=== PATIENT | female | born 1960 | race Caucasian/White ===

== ENCOUNTER → 2017-04-14 | Outpatient (CLI) | payer OTHER ==
[~2017-04-14] MED LIST: CALCIUM1 CAP PO
== END ==
LOC: COL.RAD 12:57
DX: S96.812A Strain of other specified muscles and tendons at ankle and foot level, left foot, initial encounter (principal); M77.32 Calcaneal spur, left foot

== ENCOUNTER → 2020-04-02 | Outpatient (CLI) | payer OTHER | LOC: MC.RAD 09:59 | DX: Z12.31 Encounter for screening mammogram for malignant neoplasm of breast (principal) ==

== ENCOUNTER 2020-10-24 12:11 | Emergency (ER) | payer BC ==
[~2020-10-24] VITALS: Ht 162.6 cm; Wt 81.8 kg
[2020-10-24 12:30] VITALS: TEMP 99
[2020-10-24 13:26] LABS: BASO % 0.3 % (0.0-2.0); EOS # 0.1 (0.0-0.7); EOS % 0.9 % (0-4.0); GRAN % 72.5 % (42.2-75.2); HEMATOCRIT 45.3 % (37.0-47.0); HEMOGLOBIN 14.7 g/dl (12.5-16.0); LYMPH # 1.3 (1.2-3.4); LYMPH % 19.6 % (20.0-51.0); MEAN CELL VOLUME 93 fl (80.0-100.0); MEAN CORPUSCULAR HEMOGLOBIN 30 pg (27.0-31.0); MEAN CORPUSCULAR HGB CONC 33 g/dl (33.0-37.0); MEAN PLATELET VOLUME 10.5 fl (7.4-10.4); MONO # 0.5 (0.1-0.6); MONO % 6.6 % (1.7-9.3); PLATELET COUNT 190 K/mm3 (130-400); RED BLOOD COUNT 4.88 M/mm3 (4.10-5.30); REDCELL DISTRIBUTION WIDTH-CV 12.2 % (11.5-14.5)
[2020-10-24 13:56] LABS: ALANINE AMINOTRANSFERASE 15 U/L (4-34); ALBUMIN 4.3 gm/dL (3.5-5.0); ALKALINE PHOSPHATASE 57 U/L (50-136); ANION GAP 3 mmol/L (7-16); AST,SGOT 20 U/L (15-37); BILIRUBIN,TOTAL 0.8 mg/dL (0.0-1.0); BLOOD UREA NITROGEN 18 mg/dL (7-17); CALCIUM 9.8 mg/dL (8.4-10.2); CARBON DIOXIDE 30 mmol/L (22-30); CHLORIDE 106 mmol/L (98-107); CREATININE, serum 0.64 (0.52-1.25); GLUCOSE 100 mg/dL (74-106); POTASSIUM 4.3 mmol/L (3.4-5.0); SODIUM 138 mmol/L (137-145); TOTAL PROTEIN 7.5 gm/dL (6.4-8.2)
[2020-10-24 13:58] LABS: C-REACTIVE PROTEIN < 0.5 mg/dL (0.0-0.9)
[2020-10-24 14:12] LABS: ERYTHROCYTE SEDIMENTATION RATE 1 mm/hr (0-30)
[2020-10-24] MEDS ORDERED: MOBIC15 MG PO (15:27)
[2020-10-24] MEDS ORDERED: NORCO 325 MG-101 TAB PO (15:27)
[2020-10-24] MEDS ORDERED: NEURONTIN300 MG/CAP PO (15:29)
[2020-10-24 16:34] VITALS: BP 138/77; PULSE 67
== END 2020-10-24 16:34 | disposition short-term general hospital (02) ==
LOC: COL.ER 12:11
PROVIDERS: Family Medicine
DX: M54.42 Lumbago with sciatica, left side (principal)
CPT/HCPCS: J1170; J2360

== ENCOUNTER 2020-10-26 20:06 | Emergency (ER) | payer BC ==
[~2020-10-26] VITALS: Ht 165.1 cm; Wt 79.5 kg
[~2020-10-26 20:06] MED LIST changes: +MOBIC15 MG PO; +NEURONTIN300 MG/CAP PO; +NORCO 325 MG-101 TAB PO
[2020-10-26 20:19] VITALS: TEMP 96.4
[2020-10-26 20:53] LABS: BASO # 0.1 (0.0-0.2); BASO % 0.4 % (0.0-2.0); EOS # 0.1 (0.0-0.7); EOS % 0.4 % (0-4.0); GRAN # 9.9 (1.4-6.5); GRAN % 82.4 % (42.2-75.2); HEMOGLOBIN 15.6 g/dl (12.5-16.0); LYMPH # 1.8 (1.2-3.4); LYMPH % 14.8 % (20.0-51.0); MEAN CELL VOLUME 95 fl (80.0-100.0); MEAN CORPUSCULAR HEMOGLOBIN 31 pg (27.0-31.0); MEAN CORPUSCULAR HGB CONC 33 g/dl (33.0-37.0); MEAN PLATELET VOLUME 10.8 fl (7.4-10.4); MONO # 0.2 (0.1-0.6); MONO % 1.7 % (1.7-9.3); PLATELET COUNT 167 K/mm3 (130-400); RED BLOOD COUNT 5.07 M/mm3 (4.10-5.30); REDCELL DISTRIBUTION WIDTH-CV 12.4 % (11.5-14.5)
[2020-10-26 21:02] LABS: ALBUMIN 4.3 gm/dL (3.5-5.0); BILIRUBIN,TOTAL 1.2 mg/dL (0.0-1.0); CALCIUM 9.2 mg/dL (8.4-10.2); CREATININE, serum 0.85 (0.52-1.25); POTASSIUM 4.1 mmol/L (3.4-5.0); TOTAL PROTEIN 7.7 gm/dL (6.4-8.2)
[2020-10-26 21:18] LABS: TROPONIN-I 0.065 ng/mL (0.000-0.035)
[2020-10-26 21:30] LABS: INR 1.1 (0.8-3.0); PROTHROMBIN TIME 12.6 SECONDS (9.7-12.8)
[2020-10-27 00:02] LABS: PARTIAL THROMBOPLASTIN TIME 29.7 SECONDS (26.0-37.0)
[2020-10-27 07:28] VITALS: BP 106/69; PULSE 102
== END 2020-10-27 07:30 | disposition short-term general hospital (02) ==
LOC: COL.ER 20:06
PROVIDERS: Physician Assistant
DX: R55 Syncope and collapse (principal); I26.99 Other pulmonary embolism without acute cor pulmonale; R74.8 Abnormal levels of other serum enzymes; Z20.822 Contact with and (suspected) exposure to COVID-19
CPT/HCPCS: J1644; J7030; J7040; Q9967

== ENCOUNTER 2020-11-03 12:37 | Observation (INO) | payer BC ==
[~2020-11-03] VITALS: Ht 165.1 cm; Wt 84.1 kg
[2020-11-03 14:36] LABS: BASO % 0.4 % (0.0-2.0); EOS # 0.1 (0.0-0.7); EOS % 1.4 % (0-4.0); GRAN # 6.4 (1.4-6.5); HEMATOCRIT 43.6 % (37.0-47.0); HEMOGLOBIN 14.5 g/dl (12.5-16.0); LYMPH # 1.2 (1.2-3.4); LYMPH % 14.4 % (20.0-51.0); MEAN CELL VOLUME 93 fl (80.0-100.0); MEAN CORPUSCULAR HEMOGLOBIN 31 pg (27.0-31.0); MEAN CORPUSCULAR HGB CONC 33 g/dl (33.0-37.0); MEAN PLATELET VOLUME 10.4 fl (7.4-10.4); MONO # 0.7 (0.1-0.6); MONO % 8.4 % (1.7-9.3); PLATELET COUNT 188 K/mm3 (130-400); RED BLOOD COUNT 4.69 M/mm3 (4.10-5.30); REDCELL DISTRIBUTION WIDTH-CV 12.7 % (11.5-14.5)
[2020-11-03 14:51] LABS: ALBUMIN 3.8 gm/dL (3.5-5.0); BILIRUBIN,TOTAL 0.9 mg/dL (0.0-1.0); CALCIUM 9.2 mg/dL (8.4-10.2); CREATININE, serum 0.69 (0.52-1.25); POTASSIUM 4.1 mmol/L (3.4-5.0); TOTAL PROTEIN 7.4 gm/dL (6.4-8.2)
[2020-11-03 18:13] LABS: INR 1.4 (0.8-3.0); PROTHROMBIN TIME 15.5 SECONDS (9.7-12.8)
[2020-11-03] MEDS ORDERED: ELIQUIS 5MG PO (18:57)
--- NOTE | 2020-11-03 20:00 | NUR ---
Assessment complete. Patient currently sitting in bed; she is alert and oriented with no complaints of pain. Right eye is slightly droopy and pupil is smaller than left eye. Both pupils are reactive to light and follow light. No additional neurological deficits are noted. No edema is noted. Lung sounds are clear and HR is normal/regular. Will continue to monitor closely overnight. Call light in reach.
[2020-11-03 21:18] VITALS: BP 136/88; PULSE 91; TEMP 98.8
[2020-11-04 00:53] VITALS: BP 126/69; PULSE 85; TEMP 98.5
[2020-11-04 04:04] VITALS: BP 118/75; PULSE 85; TEMP 98.8
[2020-11-04 07:08] LABS: BASO % 0.5 % (0.0-2.0); EOS # 0.1 (0.0-0.7); EOS % 1.1 % (0-4.0); GRAN % 74.8 % (42.2-75.2); HEMATOCRIT 44.2 % (37.0-47.0); HEMOGLOBIN 14.7 g/dl (12.5-16.0); MEAN CELL VOLUME 92 fl (80.0-100.0); MEAN CORPUSCULAR HEMOGLOBIN 31 pg (27.0-31.0); MEAN CORPUSCULAR HGB CONC 33 g/dl (33.0-37.0); MEAN PLATELET VOLUME 11.7 fl (7.4-10.4); MONO # 0.5 (0.1-0.6); MONO % 8.1 % (1.7-9.3); PLATELET COUNT 165 K/mm3 (130-400); RED BLOOD COUNT 4.81 M/mm3 (4.10-5.30); REDCELL DISTRIBUTION WIDTH-CV 12.8 % (11.5-14.5)
[2020-11-04 08:15] LABS: CALCIUM 9.3 mg/dL (8.4-10.2); CREATININE, serum 0.55 (0.52-1.25); POTASSIUM 4.5 mmol/L (3.4-5.0)
[2020-11-04 09:01] VITALS: BP 124/78; PULSE 82; TEMP 97.8
--- NOTE | 2020-11-04 09:51 | NUR ---
SW met with the patient to discuss to discuss discharge plan. The patient lives in [place] with her , Israel ([id number]#[phone]), and their three children. She reports independence with ADLs and has a walker. The patient's PCP is Dr. Rocío Carroll and she receives her medications from [facility]. She reports no difficulties obtaining her meds. The patient does not have a DPOA-HC in EMR, but she states that she does have one completed and that it designates her . The patient plans to return home with her family upon discharge. No additional needs at this time. *Discharge plan: home with family*
--- NOTE | 2020-11-04 10:38 | NUR ---
Initial visit; Patient thanked [facility] for looking in on her and offering comfort, prayer and God's blessings. [facility] will follow up while Celina is a patient.
--- NOTE | 2020-11-04 11:23 | NUR ---
PT RESTING COMFORTABLY IN BED. MORNING MEDICATIONS GIVEN. R HAND IV INFILTRATED AND WAS D/C. L AC IV WAS PATENT. LUNG SOUNDS CLEAR TO AUSCULTATION. HEART RATE AND RHYTHM NORMAL. PT DENIES ANY PAIN. PT STATES SHE THINKS HER R EYE IS NOT DROOPING MUCH IT WAS PRIOR. R EYE PUPIL SIZE 2MM, L EYE PUPIL SIZE 5MM. BOTH PUPILS REACTIVE TO LIGHT. WILL CONTINUE TO MONITOR.
[2020-11-04 12:01] VITALS: BP 117/47; PULSE 74; TEMP 97.8
--- NOTE | 2020-11-04 12:35 | NUR ---
PT GONE FROM FLOOR FOR PROCEDURE.
[2020-11-04 16:53] VITALS: BP 119/65; PULSE 84; TEMP 98.7
[2020-11-04 19:53] VITALS: BP 119/67; PULSE 65; TEMP 97.9
--- NOTE | 2020-11-04 20:00 | NUR ---
Assessment complete. Patient alert and oriented with complaints of mild back pain; PRN Tylenol administered. Neuro checks are intact; her right pupil is still slightly smaller than the left but has improved since last night. Comfort measures are provided and no additional concerns are noted. Call light in reach, will continue to monitor.
[2020-11-05 00:42] VITALS: BP 110/65; PULSE 66; TEMP 98.6
[2020-11-05 07:25] VITALS: BP 101/64; PULSE 60; TEMP 98
[2020-11-05 11:24] VITALS: BP 115/68; PULSE 58; TEMP 98.2
[2020-11-05] MEDS ORDERED: ROBAXIN 50500 MG/TAB PO (11:37)
--- NOTE | 2020-11-05 13:35 | NUR ---
Discharge paperwork and instructions reviewed with patient. All questions answered at this time. IV to RFA dc'd catheter tip intact. Pt wheeled out of facility at this time.
== END 2020-11-05 13:35 | disposition home or self-care (01) ==
LOC: COL.ER 12:37 → MEDICAL 18:05
PROVIDERS: Emergency Medicine; ADMIT Student in an Organized Health Care Education/Training Program
DX: I24.0 Acute coronary thrombosis not resulting in myocardial infarction (principal); H57.03 Miosis; H02.401 Unspecified ptosis of right eyelid; I82.403 Acute embolism and thrombosis of unspecified deep veins of lower extremity, bilateral; I26.99 Other pulmonary embolism without acute cor pulmonale; I48.91 Unspecified atrial fibrillation; M54.30 Sciatica, unspecified side; Q21.1 Atrial septal defect; Z79.01 Long term (current) use of anticoagulants; Z79.890 Hormone replacement therapy; Z79.899 Other long term (current) drug therapy
CPT/HCPCS: 99223-AI; 99238; A9585; G0378; J7030; Q9967

== ENCOUNTER → 2021-03-30 | Outpatient (CLI) | payer BC ==
[~2021-03-30] MED LIST changes: +ELIQUIS 5MG PO; +ROBAXIN 50500 MG/TAB PO
== END ==
LOC: COL.RAD 12:18
DX: I26.99 Other pulmonary embolism without acute cor pulmonale (principal)
CPT/HCPCS: Q9967

== ENCOUNTER → 2021-04-05 | Outpatient (CLI) | payer BC | LOC: MC.RAD 13:53 | DX: Z12.31 Encounter for screening mammogram for malignant neoplasm of breast (principal) ==

== ENCOUNTER → 2023-01-17 | Outpatient (CLI) | payer BC | LOC: MC.RAD 13:59 → COL.RAD 14:00 → MC.RAD 14:00 | DX: Z12.31 Encounter for screening mammogram for malignant neoplasm of breast (principal) ==